=== PATIENT | female | born 1940 | race Caucasian/White ===

== ENCOUNTER 2017-01-20 07:18 | Day surgery (SDC) | payer OTHER, BC ==
[~2017-01-20] VITALS: Ht 157.5 cm; Wt 116.5 kg
[~2017-01-20 07:18] MED LIST: ALDACTONE25 MG PO; ALLOPURINOL100 MG PO; ASCORBIC ACID500 M3 PO; ATIVAN0.5 MG PO; COLACE100 MG PO; COUMADIN2 MG PO; COUMADIN4 MG PO; DAILY MULTIPLE1 EACH PO; HUMALOG MI100 UNIT/5 SC; LASIX80 MG PO; LIPITOR80 MG PO; LO-DOSE ASPIRIN81 M2 PO; MIRALAX255 GM PO; NYSTATIN60 GM TP; OPTIMAL D350000 UNIT PO; PANTOPRAZOLE SO40 MG PO; PROBIOTIC 4X C1 EACH PO; PROVENTIL,2.5 MG/3 M IH; SALINE NASAL SP45 ML BOTH NARES; TOPROL XL25 MG PO; TRIAMCINOLONE A15 GM TP; TYLENOL PM1 CAPLET PO
[2017-01-20 07:53] LABS: INTER. NORMALIZED RATIO 1.2; PROTHROMBIN TIME 11.9 (9.2-11.2)
[2017-01-20] MEDS ORDERED: LOVENOX120 MG/0.8 SQ (08:04)
[2017-01-20 08:11] VITALS: BP 173/76
[2017-01-20 08:51] LABS: METH RESISTANT S AUREUS PCR POSITIVE (NEGATIVE)
[2017-01-20 08:59] LABS: PROBE CHECK PASS
[2017-01-20 09:06] LABS: POINT-OF-CARE METER ID UU13113694
[2017-01-20 11:16] VITALS: BP 138/54
[2017-01-20 11:45] VITALS: BP 148/77
== END 2017-01-20 11:45 | disposition home or self-care (01) ==
LOC: SDC 07:18
PROVIDERS: Internal Medicine
DX: H35.341 Macular cyst, hole, or pseudohole, right eye (principal); H43.11 Vitreous hemorrhage, right eye; E11.3291 Type 2 diabetes mellitus with mild nonproliferative diabetic retinopathy without macular edema, right eye; I13.0 Hypertensive heart and chronic kidney disease with heart failure and stage 1 through stage 4 chronic kidney disease, or unspecified chronic kidney disease; I50.32 Chronic diastolic (congestive) heart failure; E11.22 Type 2 diabetes mellitus with diabetic chronic kidney disease; N18.9 Chronic kidney disease, unspecified; E11.40 Type 2 diabetes mellitus with diabetic neuropathy, unspecified; E78.5 Hyperlipidemia, unspecified; M47.816 Spondylosis without myelopathy or radiculopathy, lumbar region; K21.9 Gastro-esophageal reflux disease without esophagitis; I25.2 Old myocardial infarction; E66.01 Morbid (severe) obesity due to excess calories; Z68.42 Body mass index [BMI] 45.0-49.9, adult; Z86.711 Personal history of pulmonary embolism; D53.9 Nutritional anemia, unspecified; Z95.5 Presence of coronary angioplasty implant and graft; I25.10 Atherosclerotic heart disease of native coronary artery without angina pectoris; Z79.01 Long term (current) use of anticoagulants; Z79.82 Long term (current) use of aspirin
CPT/HCPCS: 82948; 85610; 87641; J0690